=== PATIENT | female | born 1950 | race Caucasian/White ===

== ENCOUNTER 2018-06-29 07:23 | Day surgery (SDC) | payer MEDICARE ==
[2018-06-29] MEDS ORDERED: Midazolam* 1 MG/ML 2 ML VIAL (2 MG) ONE (10:05)
--- NOTE | 2018-06-29 10:44 | OP ---
OPERATIVE NOTE: DATE OF OPERATION: 06/29/18 DATE OF : 48 SURGEON: Merritt Boyd M.D. PREOPERATIVE DIAGNOSIS: Cataract, left eye. POSTOPERATIVE DIAGNOSIS: Cataract, left eye. OPERATIVE PROCEDURE: Extracapsular cataract extraction with intraocular lens implant, left eye. PROCEDURE: The patient was brought to the operating room after being given 1/2% Alcaine with epineph rine drops in the preoperative area. The eye was prepped and draped in the usual sterile fashion. S terile drape and eyelid speculum were placed. Again, topical 1/2% Alcaine with epinephrine was given . A paracentesis incision was made at the 3 o'clock position with the No. 75 blade. Clear cornea in cision 2.2 x 2.2-mm was created at the 6 o'clock position starting at the anterior limbus using the 2 .2-mm keratome. The anterior chamber was irrigated with 0.4 mL of 1% non-preservative intracameral l idocaine and filled with DisCoVisc. A capsulorrhexis was completed using the cystotome and the Utrat a forceps. Hydrodissection was performed with balanced salt solution. The lens nucleus was removed w ith the Phacoemulsification handpiece without incident. Cortex was removed with the irrigation-aspir ation handpiece. The capsular bag was re-inflated using DisCoVisc and an SN60WF 24.5 implant was ins erted with the shooter. The irrigation-aspiration handpiece was used to remove all residual DisCoVis c. The eye was refilled with balanced salt solution and the wound checked and found to be watertight . Topical Maxitrol drops were given. [id number]/[facility] #: [id number]
[2018-06-29 10:51] VITALS: BP 118/69
== END 2018-06-29 10:36 | disposition home or self-care (01) ==
LOC: OREAST 07:23
PROVIDERS: ATTEND Specialist
DX: H25.812 Combined forms of age-related cataract, left eye (principal); H33.103 Unspecified retinoschisis, bilateral; E03.9 Hypothyroidism, unspecified; Z86.718 Personal history of other venous thrombosis and embolism; Z79.01 Long term (current) use of anticoagulants; D68.51 Activated protein C resistance
CPT/HCPCS: J2250; V2632

== ENCOUNTER 2019-02-21 14:01 | Emergency (ER) | payer MEDICARE ==
--- OUTSIDE RECORDS SUMMARY | 2019-02-21 14:23 | XMS REPORT | Continuity of Care Document ---
:1950 External Reference #:[id number] Author Name Merritt Boyd M.D. Address [address] [place] [address] Care Team Providers Name Role Phone Gualberto Zavala M.D. - Family Care Team Information Public Administration Professor [phone] Medicine Denia Tiwari M.D. - Neurology Care Team Information Public Administration Professor [phone] Problems Active Problems Provider Date Migraine with aura Onset: Hypercholesterolemia Onset: Combined form of senile cataract Merritt Boyd M.D. Onset: 11/12/2015 Retinoschisis Merritt Boyd M.D. Onset: 11/12/2015 Benign neoplasm of cerebral meninges Merritt Boyd M.D. Onset: 11/15/2017 Note: MENINGIOMA (Dx: ABOUT 20 YEARS AGO, LAST MRI SHOWED 1.4 CM IN DIAMETER, FIRST MRI WHEN DX WAS 1.1CM) Factor V Leiden mutation Onset: Presence of intraocular lens Merritt Boyd M.D. Onset: 06/23/2018 Chronic allergic conjunctivitis Merritt Boyd M.D. Onset: 01/12/2019 Tear film insufficiency Merritt Boyd M.D. Onset: 01/12/2019 Social History Type Date Description Comments Sex Unknown ETOH Use Denies alcohol use Tobacco Use Start: Unknown Patient has never smoked Recreational Drug Use Denies Drug Use Smoking Status Reviewed: 01/12/19 Patient has never smoked Allergies, Adverse Reactions, Alerts Active Allergies Reaction Severity Comments Date Erythromycin 11/12/2015 Vibramycin 11/12/2015 Percocet 11/12/2015 Demerol 11/12/2015 Medications Active Medications SIG Qnty Indications Ordering Provider Date Pazeo 1 drop both eyes 7.5ml H10.45 Merritt Boyd, 01/12/2019 0.7% Solution daily M.D. Artificial Tears as needed Merritt Boyd, 11/11/2015 0.1-0.3% M.D. Solution Synthroid Unknown 50mcg Tablets Fluoxetine HCL Unknown 20mg Capsules Topiramate Unknown 15mg Caps Sprinkle Zetia Unknown 10mg Tablets Verapamil HCL ER Unknown 240mg Caps ER 24HR Omeprazole Unknown [address]mg [address] Pravastatin Sodium Unknown 40mg Tablets Vitamin D every day Unknown 1000Unit Tablets Coq-10 Unknown 150mg Capsules Magnesium Unknown 400mg Capsules Calcium 600 Unknown 600mg Tablets Xarelto Unknown 20mg Tablets History Medications Prednisolone Acetate 1 drop left eye 15ml Geetha Ying, 07/16/2018 - 1% 3 times a day O.D. 01/12/2018 Suspension Immunizations Description No Information Available Vital Signs Description No Information Available Results Description No Information Available Procedures Description No Information Available Medical Devices Description No Information Available Encounters Description No Information Available Assessments Date Code Description Provider 01/12/2019 H04.123 Dry eye syndrome of bilateral lacrimal Merritt Boyd M.D. glands 01/12/2019 H10.45 Other chronic allergic conjunctivitis Merritt Boyd M.D. 01/12/2019 Z96.1 Presence of intraocular lens Merritt Boyd M.D. 07/29/2018 Z96.1 Presence of intraocular lens Geetha Ying O.D. 07/29/2018 H33.103 Unspecified retinoschisis, bilateral Geetha Ying O.D. 07/19/2018 Z96.1 Presence of intraocular lens Geetha Ying O.D. 07/16/2018 Z96.1 Presence of intraocular lens Geetha Ying O.D. 07/15/2018 Z96.1 Presence of intraocular lens Geetha Ying O.D. Plan of Treatment Future Appointment(s):07/13/2019 1:00 pm - eGetha Ying O.D. at Merritt Boyd [facility], 01/12/2019 - Merritt Boyd M.D.H04.123 Dry eye syndrome of bilateral lacrimal glandsComments:Smoking can increase the risk of developing or worsening any eye related disease, as well as affect your overall health. If you are a smoker, we strongly recommend that you quit.If you are not a smoker , we strongly recommend that you do not start. Both of your eyes appear to be dry. Use artificial tears as directed. You can use the tears more often if you are reading a book or are on the computer,as we tend to blink less, making our eyes dry out more.[facility] offers a few items in our optical department to help alleviate dry eye symptoms. Systane and Refresh are good brands of tearsyou can use. You can pick these up at any pharmacy and they do not require a prescription.H10.45 Other chronic allergic conjunctivitisNew Medication:Pazeo 0.7 % - 1 drop both eyes dailyComments:You have Allergic Conjunctivitis. Your symptoms can be aggravated by rubbing your eyes. Dr. Boyd recommends you use tear drops and a cold compress to alleviate your symptoms. Dr. Boyd may also prescribe medication if necessary.Z96.1 Presence of intraocular lensComments:The artificial lens implants in both eyes appear to be stable at this time. Functional Status Description No Information Available Mental Status Description No Information Available Referrals Description No Information Available
[2019-02-21] MEDS ORDERED: Lidocaine 1% MPF ** 5 ML VIAL INJ ONE (15:26)
--- NOTE | 2019-02-21 15:30 | ED ---
Laceration/Wound HPI - HPI Summary HPI Summary: Patient is a 68-year-old female who presents emergency department for laceration to left thumb that occurred just prior to arrival. Patient states she was cutting a spaghetti squash when the knife slipped and cut her left thumb. Patient notes last tetanus immunization was within 5 years. Symptoms are mild in severity. She is anticoagulated on xarelto. Symptoms are mild in severity. Touching area makes symptoms worse. Nothing makes symptoms better. - History of Current Complaint Stated Complaint: LT THUMB LAC PER PT Time Seen by Provider: 02/21/19 15:12 Hx Obtained From: Patient Pain Intensity: 2 - Allergy/Home Medications Allergies/Adverse Reactions: Allergies Allergy/AdvReac Type Severity Reaction Status Date / Time Adhesive Tape Allergy RASH IF Verified 06/29/18 08:27 LEFT ON FOR ANY LENGTH OF TIME erythromycin base Allergy Rash Verified 06/29/18 08:27 meperidine [From Demerol] Allergy Shortness Verified 06/29/18 08:27 of Breath morphine Allergy Vomiting Verified 06/29/18 08:27 oxycodone [From Percocet] Allergy Shortness Verified 06/29/18 08:27 of Breath doxycycline [From Vibramycin] AdvReac Headache, Verified 06/29/18 08:27 NAUSEA AND VOMITING tetracycline AdvReac Nausea Verified 06/29/18 08:27 PMH/Surg Hx/FS Hx/Imm Hx Previously Healthy: Yes Endocrine/Hematology History: Reports: Hx Thyroid Disease - HYPOTHYROID- ON MEDICATION FOR Denies: Hx Diabetes Cardiovascular History: Reports: Other Cardiovascular Problems/Disorders - RIGHT LEG DVT-2 YEARS AGO Denies: Hx Hypertension, Hx Pacemaker/ICD GI History: Reports: Hx Gastroesophageal Reflux Disease - ROUTINE MEDICATION FOR , Hx Irritable Bowel History: Denies: Hx Renal Disease Sensory History: Reports: Hx Cataracts - BILATERAL, Hx Contacts or Glasses - GLASSES Denies: Hx Hearing Aid Opthamlomology History: Reports: Hx Cataracts - BILATERAL, Hx Contacts or Glasses - GLASSES Neurological History: Reports: Hx Migraine - ROUTINE MEDICATION FOR-STILL HAS A COUPLE TIMES PER WEEK-, Other Neuro Impairments/Disorders - VERTIGO/DIZZINESS- ASSOCIATED WITH MIGRAINES Psychiatric History: Reports: Hx Depression - ON MEDICATION FOR Denies: Hx Panic Disorder - Cancer History Hx Chemotherapy: No Hx Radiation Therapy: No - Surgical History Surgery Procedure, Year, and Place: HEMILAMINECTOMY L4-L5;. BILATERAL HEEL SPURS REMOVED;. HYSTERECTOMY;. ROTATOR CUFF REPAIR BILATERAL SHOULDERS;. GALLBLADDER REMOVED; Hx Anesthesia Reactions: Yes - REACTIONS ASSOCIATED WITH DEMEROL AND MORPHINE - Immunization History Date of Tetanus Vaccine: 2105 Date of Influenza Vaccine: 12/2018 Immunizations Up to Date: Yes Infectious Disease History: No Infectious Disease History: Denies: Traveled Outside the [place] in Last 30 Days - Family History Known Family History: Positive: Non-Contributory - Social History Occupation: Retired Alcohol Use: Rare Substance Use Type: Reports: None Smoking Status (MU): Former Smoker Amount Used/How Often: <1 PPD X 4 YEARS Have You Smoked in the Last Year: No Review of Systems Positive: Other - laceration left thumb Neurological: Negative Negative: Weakness, Paresthesia, Numbness All Other Systems Reviewed And Are Negative: Yes Physical Exam Triage Information Reviewed: Yes Vital Signs On Initial Exam: Initial Vitals Temp Pulse Resp BP Pulse Ox 99.1 F 83 18 141/94 100 02/21/19 14:08 02/21/19 14:08 02/21/19 14:08 02/21/19 14:08 02/21/19 14:08 Vital Signs Reviewed: Yes Appearance: Positive: Well-Appearing - Pt .sitting on bed in NAD. Pleasant. Skin: Positive: Warm, Dry Head/Face: Positive: Normal Head/Face Inspection Neck: Positive: Supple Musculoskeletal: Positive: Other - 2cm linear laceration noted along lateral distal aspect of left thumb. Full ROM of digit. No bony tenderness. Minimal active bleeding. Neurological: Positive: Normal, CN Intact II-III Psychiatric: Positive: Affect/Mood Appropriate Procedures - Sedation Patient Received Moderate/Deep Sedation with Procedure: No - Laceration/Wound Repair 1 Location: upper extremity - left thumb Description: Linear Anesthesia: Local, 1.0% Length, Depth and Shape: 2cm linear Betadine Prep?: Yes Irrigated w/ Saline (ccs): 100 Laceration/Wound Explored: clean Closure: Single Layer Suture Type: Nylon Number of Sutures: 3 Layer Closure?: No Sterile Dressing Applied?: Yes Diagnostics - Vital Signs Vital Signs Temp Pulse Resp BP Pulse Ox 02/21/19 14:08 99.1 F 83 18 141/94 100 - Laboratory Lab Statement: Any lab studies that have been ordered have been reviewed, and results considered in the medical decision making process. Laceration Repair Course/Dx - Course Course Of Treatment: Patient presenting with simple thumb laceration. No tendon involvement. Wound was repaired as noted above. Suture removal in 7-10 days. Keep wound clean and dry. To return to the ER for redness, swelling or drainage from wound. Patient understands and agrees with plan. - Differential Dx Differental Diagnoses: Avulsion, Laceration, Tendon Laceration - Clinical Impression Provider Diagnoses: Finger laceration Discharge ED - Sign-Out/Discharge Documenting (check all that apply): Patient Departure - Discharge Plan Condition: Improved Disposition: HOME Patient Education Materials: Care For Your Stitches (ED) Referrals: Gualberto Zavala MD [Primary Care Provider] - Additional Instructions: Suture removal in 7-10 days Keep wound clean and dry Return to ER for redness, swelling, or drainage - Billing Disposition and Condition Condition: IMPROVED Disposition: Home
[2019-02-21 16:30] VITALS: BP 136/96
== END 2019-02-21 16:32 | disposition home or self-care (01) ==
LOC: ED 14:01
DX: S61.012A Laceration without foreign body of left thumb without damage to nail, initial encounter (principal); E03.9 Hypothyroidism, unspecified; K21.9 Gastro-esophageal reflux disease without esophagitis; F32.9 Major depressive disorder, single episode, unspecified; W26.0XXA Contact with knife, initial encounter; Y93.G9 Activity, other involving cooking and grilling; Z88.5 Allergy status to narcotic agent; Z88.1 Allergy status to other antibiotic agents; Z88.8 Allergy status to other drugs, medicaments and biological substances; Z79.899 Other long term (current) drug therapy; Z86.718 Personal history of other venous thrombosis and embolism; Z87.891 Personal history of nicotine dependence
CPT/HCPCS: 12001; 99281